=== PATIENT | male | born 1935 | race Caucasian/White ===

== ENCOUNTER 2018-11-13 20:33 | Outpatient (CLI) | payer MEDICARE, BC | END 2018-11-13 20:34 | disposition critical access hospital (66) | LOC: EMS 20:33 | PROVIDERS: ATTEND Surgery | DX: R55 Syncope and collapse (principal) | CPT/HCPCS: A0425; A0427 ==

== ENCOUNTER 2018-11-13 20:55 | Emergency (ER) | payer MEDICARE, BC ==
[2018-11-13] MEDS ORDERED: IOVERSOL 320 100 ML VIAL IVP ONE ×3 (20:56→22:01)
--- NOTE | 2018-11-13 20:57 | ED Physician Documentation ---
PD HPI SYNCOPE - Stated complaint Stated Complaint: SYNCOPLE EPISODE - History obtained from History obtained from: Patient, EMS - History of Present Illness Witnessed: Witnessed (The patient was at a local social club with his friends where they meet regularly and have drinks and play cards. His friend who is with him here in the ER says they are having a typical evening and the patient and his friend both went to the bathroom. The patient had just finished urinating at a urinal and then seemed pale and collapsed against the wall and then down to the floor. The bystander states he did not hit his head significantly. He was out for a few seconds and then awoke. He still seemed pale. His friend says there was some slurring of speech but no focal weakness noted. EMS was called and the patient was brought here. Initial blood pressure was a little bit low and then improved on route.) Timing - onset: How many minutes ago (30) Duration: Seconds Preceding symptoms: Nausea / vomiting, Light headed. No: Headache, Abdominal pain Associated symptoms: No: Seizure, Headache, Chest pain, Abdominal pain Contributing factors: Other (had just finished urinating, and had been drinking several drinks.). No: Recent med change, Decreased PO intake Injury occurred: Fell, Bit tongue Similar symptoms before: Has not had sx before Recently seen: Not recently seen Review of Systems Ten Systems: 10 systems reviewed and negative Constitutional: denies: Fever Nose: denies: Rhinorrhea / runny nose, Congestion Throat: denies: Sore throat Cardiac: denies: Chest pain / pressure Respiratory: denies: Cough GI: reports: Nausea. denies: Abdominal Pain, Vomiting, Diarrhea Neurologic: reports: Confused (after the fall/syncope, his friend says he was confused and slow to answer questions and seemed to have some slurring of sp eech.). denies: Focal weakness, Numbness, Headache PD PAST MEDICAL HISTORY - Past Medical History Cardiovascular: Hypertension Respiratory: None Neuro: None Endocrine/Autoimmune: None - Allergies Allergies/Adverse Reactions: Allergies Allergy/AdvReac Type Severity Reaction Status Date / Time No Known Drug Allergies Allergy Verified 11/13/18 21:05 - Living Situation Living Situation: reports: With spouse/s.o. Living Arrangement: reports: At home - Social History Does the pt drink ETOH?: Yes ETOH Use: Beer (3-4 beers a few times a week with friends) Does the pt have substance abuse?: No - Family History Family history: reports: CAD PD ED PE NORMAL - Vitals Vital signs reviewed: Yes - General General: No acute distress, Well developed/nourished. No: Alert and oriented X 3 (to person and place, but not clear on time initially. ) - HEENT HEENT: Atraumatic (no tenderness on scalp. There is bruising of right side of tongue. No lacerations. Teeth seem okay. 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 No facial droop. ) Eye Opening: Spontaneous Motor: Obeys Commands Verbal: Oriented GCS Score: 15 Results - Vitals Vitals: Vital Signs - 24 hr 11/13/18 11/13/18 21:05 21:13 Temperature 36.6 C Heart Rate 68 71 Respiratory 16 20 Rate Blood Pressure 179/88 H 122/60 O2 Saturation 98 97 Oxygen O2 Source Room air - Labs Labs: Laboratory Tests 11/13/18 11/13/18 11/13/18 22:00 22:00 22:00 WBC 7.1 RBC 4.71 Hgb 14.8 Hct 44.8 MCV 95.2 H MCH 31.5 H MCHC 33.1 RDW 13.9 Plt Count 200 MPV 7.7 Neut # (Auto) 5.0 Lymph # (Auto) 1.3 L Clare # (Auto) 0.5 Eos # (Auto) 0.3 Baso # (Auto) 0.1 Absolute Nucleated RBC 0.00 Nucleated RBC % 0.0 Sodium 135 Potassium 3.9 Chloride 101 Carbon Dioxide 24 Anion Gap 10.0 BUN 13 Creatinine 0.7 Estimated GFR (MDRD) 107 Glucose 151 H Calcium 8.8 Magnesium Total Bilirubin 0.5 AST 23 ALT 17 Alkaline Phosphatase 55 Troponin I < 0.04 Total Protein 7.0 Albumin 3.8 Globulin 3.2 Albumin/Globulin Ratio 1.2 Lipase 20 L Ethyl Alcohol 216.0 11/13/18 22:00 WBC RBC Hgb Hct MCV MCH MCHC RDW Plt Count MPV Neut # (Auto) Lymph # (Auto) Clare # (Auto) Eos # (Auto) Baso # (Auto) Absolute Nucleated RBC Nucleated RBC % Sodium Potassium Chloride Carbon Dioxide Anion Gap BUN Creatinine Estimated GFR (MDRD) Glucose Calcium Magnesium 1.9 Total Bilirubin AST ALT Alkaline Phosphatase Troponin I Total Protein Albumin Globulin Albumin/Globulin Ratio Lipase Ethyl Alcohol - Rads (name of study) head CT Radiology: Prelim report reviewed, Discussed with rads (no acute process) head angio Radiology: Prelim report reviewed, Discussed with rads (normal flow) PD MEDICAL DECISION MAKING - ED course Complexity details: re-evaluated patient (Patient is feeling much improved. He has a normal interaction and speech. He feels good and wants to go home. His family members are here which is his son and [id number]. They are comfortable having him go home with them. The hvac controls technician got the patient up and checked his gait and he was able to walk well without any ataxia. At this point I feel comfortable discharging him home.), considered differential (The patient does have improving alertness and speech after arrival here in the ER and coming back from CT scan. The initial concern was for cardiac abnormality with the syncope. There was the report of slurred speech as well and he seemed to have a little bit here although it was probably more consistent with intoxication. Given the timing of it, I did initiate some stroke evaluation to be in a timely fashion. He was improving after just a little while here and his blood alcohol level was elevated and there are no other deficits so I subsequently concluded it seemed more alcohol intoxication for the slurred speech. Cardiovascular seem normal on EKG, monitor, vital signs, blood tests. I feel it was episode of vasovagal micturition syncope and he seems to be doing well now.), d/w patient Departure - Departure Disposition: 01 Home, Self Care Clinical Impression: Micturition syncope Fall Qualifiers: Encounter type: initial encounter Qualified Code(s): W19.XXXA - Unspecified fall, initial encounter Alcohol intoxication Qualifiers: Complication of substance-induced condition: uncomplicated Qualified Code(s): F10.920 - Alcohol use, unspecified with intoxication, uncomplicated Condition: Stable Record reviewed to determine appropriate education?: Yes Instructions: ED Syncope Vasovagal Comments: Stay well-hydrated. Continue usual medications. Get up and move slowly tonight and tomorrow to make sure not lightheaded. Avoid excess alcohol. Recheck if continued episodes of lightheadedness or other problems. Discharge Date/Time: 11/13/18 22:54
[2018-11-13] MEDS ORDERED: SODIUM CHLORIDE 0.9% 1,000 ML IV ONE (21:01)
[2018-11-13 21:17] VITALS: BP 122/60
--- NOTE | 2018-11-13 21:41 | CT Report ---
Reason: syncope, fall, some slurred speech Procedure Date: 11/13/2018 Accession Number: [id number] / [id number] Procedure: CT - Head W/O Stroke Protocol CPT Code: FULL RESULT: EXAM: CT HEAD. EXAM DATE: 11/13/2018 09:29 PM. CLINICAL HISTORY: Syncope, fall, some slurred speech. COMPARISON: None. TECHNIQUE: Multiaxial CT images were obtained from the foramen magnum to the vertex. Reformats: Sagittal and coronal. IV contrast: None. In accordance with CT protocol optimization, one or more of the following dose reduction techniques were utilized for this exam: automated exposure control, adjustment of mA and/or KV based on patient size, or use of iterative reconstructive technique. FINDINGS: Parenchyma: No intraparenchymal hemorrhage. No evidence of mass, midline shift, or CT findings of acute infarction. Cedeño-white differentiation is distinct. Extraaxial Spaces: Normal for age. No subdural or epidural collections identified. Ventricles: Normal in size and position. Sinuses and Orbits: Imaged paranasal sinuses, orbits, and mastoids show no significant abnormality. Bones: No evidence of fracture or calvarial defect. Other: None. IMPRESSION: No acute intracranial abnormality. RADIA The critical test notification system was initiated by Dr. Rajeev Alonso at 09:39 PM on 11/13/2018. The above critical test findings were discussed with Rajinder Floyd by Dr. Rajeev Alonso at 09:42 PM on 11/13/2018.
[2018-11-13 22:11] LABS: BASOPHILS # (AUTO) 0.1 10^3/uL (0.0-0.1); BASOPHILS % (AUTO) 1.7 %; EOSINOPHILS # (AUTO) 0.3 10^3/uL (0.0-0.7); EOSINOPHILS % (AUTO) 3.6 %; HGB - HEMOGLOBIN 14.8 g/dL (14.0-18.0); LYMPHOCYTES # (AUTO) 1.3 10^3/uL (1.5-3.5); LYMPHOCYTES % (AUTO) 18.4 %; MEAN CORPUSCULAR HEMOGLOBIN 31.5 pg (27.0-31.0); MEAN CORPUSCULAR HGB CONC 33.1 g/dL (32.0-36.0); MEAN CORPUSCULAR VOLUME 95.2 fL (80.0-94.0); MEAN PLATELET VOLUME 7.7 fL (7.4-11.4); MONOCYTES # (AUTO) 0.5 10^3/uL (0.0-1.0); MONOCYTES % (AUTO) 6.8 %; NEUTROPHILS % (AUTO) 69.5 %; PLT - PLATELET COUNT 200 10^3/uL (130-450); RED BLOOD COUNT 4.71 10^6/uL (4.70-6.10); RED CELL DISTRIBUTION WIDTH 13.9 % (12.0-15.0); WHITE BLOOD COUNT 7.1 x10^3/uL (4.8-10.8)
[2018-11-13 22:24] LABS: ALBUMIN 3.8 g/dL (3.2-5.5); ALBUMIN/GLOBULIN RATIO 1.2 (1.0-2.2); BILIRUBIN,TOTAL 0.5 mg/dL (0.2-1.0); CALCIUM 8.8 mg/dL (8.5-10.3); CREATININE 0.7 mg/dL (0.6-1.2)
--- NOTE | 2018-11-13 22:34 | CT Report ---
Reason: syncope, some slurred speech Procedure Date: 11/13/2018 Accession Number: [id number] / [id number] Procedure: CT - ANGIO HEAD W CPT Code: FULL RESULT: EXAM: CT ANGIOGRAM HEAD. CT SCAN OF THE HEAD WITH CONTRAST. EXAM DATE: 11/13/2018 09:58 PM CLINICAL HISTORY: Syncope, some slurred speech. COMPARISON: HEAD W/O STROKE PROTOCOL 11/13/2018 9:26 PM. TECHNIQUE: - CT Scan Head: Using a multidetector scanner, axial images were acquired from the foramen magnum to the skull vertex prior to and following contrast administration. - CT Angiogram: Using a multidetector scanner, high-resolution axial images were acquired from the skull base through vertex following rapid infusion of intravenous contrast. Reformats: Multiplanar MIP reformats were reconstructed. Nascet criteria used for stenosis measurement. IV Contrast: [id number]. In accordance with CT protocol optimization, one or more of the following dose reduction techniques were utilized for this exam: automated exposure control, adjustment of mA and/or KV based on patient size, or use of iterative reconstructive technique. FINDINGS: POST-CONTRAST HEAD: No abnormal enhancement. CT ANGIOGRAM HEAD: Vertebral arteries are roughly codominant. Basilar artery and both posterior cerebral arteries appear patent and unremarkable. Posterior communicating arteries not identified bilaterally. Atherosclerotic calcification of both carotid siphons without flow limiting stenosis. Both anterior and middle cerebral arteries are patent and unremarkable. Patent anterior communicating artery. DURAL VENOUS SINUSES AND MAJOR CENTRAL VEINS: Patent. IMPRESSION: CT Head: No acute intracranial abnormality. Specifically, no evidence of acute infarct, hemorrhage, or mass lesion. No abnormal enhancement. CTA Head: 1. Atherosclerotic calcification of both carotid siphons without flow limiting stenosis. 2. No large vessel occlusion or aneurysm. RADIA The call report notification system was initiated by Dr. Myke Krueger at 10:30 PM on 11/13/2018. The above call report findings were discussed with Rajinder Floyd by Dr. Myke Krueger at 10:32 PM on 11/13/2018.
== END 2018-11-13 22:54 | disposition home or self-care (01) ==
LOC: ED 20:55
DX: R55 Syncope and collapse (principal); R39.198 Other difficulties with micturition; F10.920 Alcohol use, unspecified with intoxication, uncomplicated; I44.0 Atrioventricular block, first degree; I10 Essential (primary) hypertension; Z91.81 History of falling
CPT/HCPCS: 36415; 70450; 70496; 80053; 83690; 83735; 84484; 85025; 93005; 99284; Q9967; 80320